=== PATIENT | male | born 1945 | race Caucasian/White ===

== ENCOUNTER 2016-05-21 09:21 | Emergency (ER) | payer MEDICARE ==
[2016-05-21 09:26] VITALS: RESP 18
--- NOTE | 2016-05-21 10:03 | ED ---
Extremity Problem HPI - General Chief complaint: Extremity Problem,Nontraumatic Stated complaint: rt leg pain Time Seen by Provider: 05/21/16 09:40 Source: patient, RN notes reviewed Mode of arrival: ambulatory Limitations: no limitations - History of Present Illness Initial comments: Patient is 71-year-old male presents to the emergency room for evaluation of right leg pain. Patient states on Monday he drove from the [facility] back to [place]. Patient states he had about a [address] Patient states every 2 hours, he would get out of the car and walk around. Patient states he' s done this about 6 times a year with no issues. Patient states yesterday [place] he began having increasing right leg pain that radiates from his right hip down his entire leg. Patient denies any recent falls or injuries to his hip. Patient states last night he noticed distention of his vein on the medial portion of his leg. Patient states she's never had this before. Patient states he's worried he has a blood clot. Patient denies any history of blood clots. Patient states the pain starts on the lateral portion of his upper leg and radiates down. Patient denies any numbness or tingling in his toes. Patient denies any fevers or chills. Patient denies shortness of breath. - Related Data Home Medications Medication Instructions Recorded Confirmed Albuterol Inhaler [Ventolin Hfa 1 puff INHALATION BID 12/02/13 12/03/13 Inhaler] Atenolol [Tenormin] 25 mg PO QAM 12/02/13 12/03/13 Dorzolamide 2% [Trusopt] 1 drops RIGHT EYE BID 12/02/13 12/03/13 Insulin Glargine [Lantus] 35 unit SQ HS 12/02/13 12/03/13 Lantanoprost 1 drop BOTH EYES HS 12/02/13 12/03/13 Losartan Potassium [Cozaar] 50 mg PO QAM 12/02/13 12/03/13 Nitroglycerin Sl Tabs [Nitrostat] 1 tab SL DAILY PRN 12/02/13 12/03/13 glipiZIDE [Glucotrol] 10 mg PO AC-[id number] 12/02/13 12/03/13 metFORMIN HCL [Glucophage] 850 mg PO TID 12/02/13 12/03/13 Aspirin EC [Ecotrin] 325 mg PO ONCE 12/03/13 12/03/13 Previous Rx's Medication Instructions Recorded Ibuprofen [Motrin] 600 mg PO Q6HR PRN #20 tab 05/21/16 Allergies Allergy/AdvReac Type Severity Reaction Status Date / Time No Known Allergies Allergy Verified 05/21/16 09:25 Review of Systems ROS Statement: Those systems with pertinent positive or pertinent negative responses have been documented in the HPI. ROS Other: All systems not noted in ROS Statement are negative. Past Medical History Past Medical History: Cancer, Chest Pain / Angina, COPD, Diabetes Mellitus, Eye Disorder, Hearing Disorder / Deafness, Hypertension, Renal Disease Additional Past Medical History / Comment(s): GLAUCOMA. SKIN CANCER. RIGHT RENAL CALCULI. INCREASED SOB. History of Any Multi-Drug Resistant Organisms: None Reported Past Surgical History: Appendectomy, Cholecystectomy, Heart Catheterization, Tonsillectomy Additional Past Surgical History / Comment(s): FOR RENAL CALCULI. BILATERAL CATARACTS. Past Anesthesia/Blood Transfusion Reactions: No Reported Reaction Past Psychological History: No Psychological Hx Reported Smoking Status: Former smoker Past Alcohol Use History: None Reported Past Drug Use History: None Reported - Past Family History Sister(s) Family Medical History: Deep Vein Thrombosis (DVT), Pulmonary Embolus General Exam - General Exam Comments Initial Comments: Laying in exam room in no acute distress. Limitations: no limitations General appearance: alert, in no apparent distress Head exam: Present: atraumatic, normocephalic, normal inspection Eye exam: Present: normal appearance ENT exam: Present: normal exam Neck exam: Present: normal inspection Respiratory exam: Present: normal lung sounds bilaterally. Absent: respiratory distress Cardiovascular Exam: Present: regular rate, normal rhythm, normal heart sounds Right Hip exam: Present: normal inspection, full ROM, tenderness (anterior lateral hip ) Upper Leg exam: Absent: normal inspection (enlarged vein on the medial portion of upper thigh radiating to the mid calf) Knee exam: Present: normal inspection, full ROM. Absent: tenderness Neurovascular tendon exam: Present: no vascular compromise. Absent: pulse deficit (2+ dorsal pedal and posterior tibial pulses), abnormal cap refill ( Capillary refill less than 2 seconds) Back exam: Present: normal inspection Neurological exam: Present: alert, oriented X3, CN II-XII intact Psychiatric exam: Present: normal affect, normal mood Skin exam: Present: warm, dry, intact, normal color. Absent: rash Course Vital Signs 05/21/16 05/21/16 09:24 10:57 Temperature 97.3 F L Pulse Rate 85 74 Respiratory 18 18 Rate Blood Pressure 156/86 162/90 O2 Sat by Pulse 99 95 Oximetry Medical Decision Making - Medical Decision Making Patient is a 71-year-old male presents emergency room for evaluation of right leg pain. Right hip x-ray: Mild right hip osteoarthrosis. No acute osseous abnormality seen. Right leg venous Doppler ultrasound: Appears negative for DVT. Patient appears to have superficial phlebitis. Advised patient to apply warm moist heat to the area and take anti-inflammatories. Advised patient to follow-up with his primary care provider on Monday for reevaluation. Patient states he understands everything that was discussed with him. Return parameters discussed. Case discussed with Dr. Guthrie. - Radiology Data Radiology results: report reviewed, image reviewed Disposition Clinical Impression: Phlebitis of leg, right, superficial Disposition: HOME SELF-CARE Condition: Good Instructions: Superficial Thrombophlebitis (ED) Additional Instructions: Apply warm moist heat over the area. Take anti-inflammatories. Please follow up with primary care provider on Monday for reevaluation. If any new symptom arises, symptoms worsen or fever develops, return to ER as soon as possible. Prescriptions: Ibuprofen [Motrin] 600 mg PO Q6HR PRN #20 tab PRN Reason: Pain Referrals: Quang Cifuentes MD [Primary Care Provider] - 1-2 days Time of Disposition: 11:57
--- NOTE | 2016-05-21 10:44 | US ---
EXAMINATION TYPE: US venous doppler duplex LE RT DATE OF EXAM: 05/21/2016 10:32 AM TECHNIQUE: Doppler ultrasound examination of the right lower extremity. COMPARISON: NONE CLINICAL HISTORY: 71-year-old male with right leg pain starting in the hip going down into the foot f or about 2 days. SIDE PERFORMED: Right VESSELS IMAGED: External Iliac Vein (EIV) Common Femoral Vein Deep Femoral Vein Greater Saphenous Vein * Femoral Vein Popliteal Vein Small Saphenous Vein * Proximal Calf Veins (* superficial vessels) Right Leg: Appears Negative for DVT IMPRESSION: No evidence for DVT in the right lower extremity imaged from the groin to the upper calf.
--- NOTE | 2016-05-21 11:07 | XR ---
EXAMINATION TYPE: XR Hip Complete RT DATE OF EXAM: 05/21/2016 10:58 AM COMPARISON: NONE HISTORY: 71-year-old male right hip pain TECHNIQUE: AP and frog-leg lateral views FINDINGS: There is mild marginal spurring at the right hip with relatively maintained hip joint space at this t tan. Some enthesopathy at the lesser trochanter. No acute fracture or dislocation. IMPRESSION: Mild right hip osteoarthrosis. No acute osseous abnormality seen.
[2016-05-21 12:08] VITALS: BP 154/90; PULSE 68; TEMP 97.1
== END 2016-05-21 12:05 | disposition home or self-care (01) ==
LOC: EC 09:21
DX: I80.01 Phlebitis and thrombophlebitis of superficial vessels of right lower extremity (principal); M16.11 Unilateral primary osteoarthritis, right hip; J44.9 Chronic obstructive pulmonary disease, unspecified; I10 Essential (primary) hypertension; E11.9 Type 2 diabetes mellitus without complications; H40.9 Unspecified glaucoma; Z79.82 Long term (current) use of aspirin; Z79.4 Long term (current) use of insulin; Z79.84 Long term (current) use of oral hypoglycemic drugs; Z79.899 Other long term (current) drug therapy; Z87.891 Personal history of nicotine dependence
CPT/HCPCS: 73502; 99284